=== PATIENT | female | born 1985 | race Caucasian/White ===

== ENCOUNTER 2018-02-22 06:09 | Day surgery (SDC) | payer OTHER ==
--- NOTE | 2018-02-21 21:38 | PDGENHP ---
History and Physical - Chief Complaint Right Hip Pain - History of Present Illness 1. Bilateral~Femoroacetabular impingement (SHAYY) mixed type, (Right side symptomatic) 2. Bilateral~Early Osteoarthritis 3. 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 I have enjoyed meeting her. She~lives in [place], [place]. 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 ~ She~is ; she~has no~children. ~Giovannaenjoys training dogs ([employer]) , horseback riding ([employer]). Bertha's right~hip pain started summer, with no~recalled trauma or injury , and with no~previous complaints. Giovannadoes not have~a known history of hip dysplasia. Noticed at work with sharp stabbing pain when going from sitting to standing. Used to occur 1 x week, now daily. Improves with walking, but has noticed she's changed how she ambulates now too. Riding horses has also become bothersome. Presentation today is of anterior right~hip pain. ~The hip does not~wake her~at night and does not~click and catch on her. Sitting does not present a problem~ for her. Giovannadoes~report suffering from lower back pain episodes. Giovannahas~participated in physical therapy and has not~tried other conservative measures including. She~has not~received sufficient symptomatic improvement. Giovannahas~utilized medication for pain management, including NSAID. Giovannahas used medication for several months. Giovannadenies issues with the left~hip. ~ Giovannaunderstands that she~has a hip and pelvis problem which should be researched and wishes to get a better understanding of her~hip status, followed by an establishment of a treatment strategy, hoping she~would be able to get back to her~well being active life. History: Past medical history: ~ Patient ~has a past medical history of Diabetes mellitus (HC code); Diabetes mellitus type II; Hyperlipidemia; Ingrown toenail; Kidney abscess; and Vertebral fracture. She also has no past medical history of Complication of anesthesia; Dysrhythmia; Malignant hyperthermia; or Motion sickness. Relevant familial history: None which is relevant Past surgical history: None Giovannahas never received general anesthesia. I have reviewed, verified and agree with the past medical, surgical, family and social history. Current Medications:~has a current medication list which includes the following prescription(s): blood sugar diagnostic strip, empagliflozin, ergocalciferol ( vitamin d2), glucagon, insulin degludec, insulin lispro, lancets, liraglutide, metformin, naproxen sodium, and sandeep pen needle. ALLERGIES:~has No Known Allergies. Objective: Physical Examination: Giovannais 5~feet 2~inches tall and weighs 182~Lbs. Giovannais AAO x3; she~is well- nourished, in NAD. Skin is warm and dry. ~Breathing is non-labored. ~CV with RRR by pulse. Abdomen is soft, NTND. Currently, she~walks with a abnormal - externally rotated on R - ~gait. Trendelenburg sign is negative~and proprioception is reduced, both~sides. She~presents with mild~signs of joint laxity. Beightons Score: 2 ~ Lower spine examination is negative~for sciatic or femoral nerve irritation with negative~SLR &~femoral stretch tests. Range of motion of the spine is normal~for flexion, extension, and rotations, with no~associated pain. Strength, Sensation and pulses are normal - bilaterally Ankles and knees exams are normal~and no~mal-alignment is evident. She~has no leg length discrepancy. Thigh circumference is symmetric~with no evidence for muscle atrophy~on both~ sides. Hip ROM (degrees): FL ER At 90~hip FL IR At 90~hip FL AB AD EX IR Neutral hip ER Neutral hip R 100 45 10 45 5 5 15 45 L 110 50 15 50 5 5 20 40 Specific hip and pelvis tests: Impingement Test ALEXANDRO Roll Add. Longus R +++ +++ +++ + L Negative Negative Negative + Glut. Med ITB Posterior Imp R Negative 5/5 strength Negative 5/5 strength Negative L Negative 5/5 strength Negative 5/5 strength Negative Squeeze test measured normal Bony Symphysis pubis is pain free~to touch while concentric activity of the rectus abdominis, does not~produce pain at its insertion. Ilio Psos specific tests are negative for pain during cycling for both hips~and remarkable for nothing further HF has no pain both hips. Anterior~capsule tenderness on the right Greater trochanteric burse is pain free~on both hips. Piriformis tests: FAIR is negative, with no~local signs of neuritis related to sciatic nerve. SIJs examination is normal~with normal~ALEXANDRO in relation and local tenderness. Hamstrings tests are no pain both hips. On a daily basis, the following percentages reflect Bertha's overall total pain: Deep hip: 100% Imaging: Radiology studies which I have personally reviewed, analyzed and measured are below: XR: AP of the hip and pelvis: Performed in a good~technique Coccyx to pubic symphysis distance 2.9~cm. 0~degrees caudal [place] Lines are preserved. Minimal~Pathological signs are seen in the Symphysis Pubis. No~Pathological signs are seen at the Ischial tuberosity. ~ Specific measurements show: NSA~ LCE Sourcil~Angle Sharp's angle Lat. Cam Lat. Pincer C.Over~sign Head~Coverage % ATDmm R 130 43 2 36 N N N 92.3 + L 124 38 2 39 N N N 87.8 + Pos. wall sign ISS NAD ~~Dysplasia Comments R Negative Negative 12.6~mm Negative L Negative Negative 10.2~mm Negative Sclerosis Sup. Lat. OA Cysts Joint Space-WBZ Joint Space-Medial R + Negative Negative 4.6~mm 2.0~mm L + Negative Negative 4.3~mm 2.2~mm X Table lateral: Anterior cam lesion is seen~on both hips. Alpha Angle: ~ Right 60~dergrees Left 57~degrees Impression and plan: Giovannais a 32 y.o.~active female~suffering from symptomatic Right~hip pain due to Right~Femoroacetabular impingement (SHAYY) Cam type, Right clinical femoral retrotorsion and Right early hip arthritis~causing significant disability to her ~and altering her~sport and life activities. Physical examination, imaging, and her~story correspond with the diagnosis mentioned above. I explained that femoral malrotation is a condition wherein the hip joint has excessive play~and instability due to the orientation of the femur bone or where the femur bone is rotated towards the back of the hip socket resulting in additional impingement pathology. This pathology ranges in severity with treatment options being specific to the nature of the problem. Left untreated, the ante-torsion related instability or the retro-torsion related impingement in the hip joint can cause progressive tearing of the labrum and deterioration of the surface cartilage, ultimately resulting in progressive osteoarthritis of the hip. ~ I explained that femoroacetabular impingement (SHAYY - Cam type) arises due to a bony or soft tissue conflict between the femur (ball) and acetabulum (socket) caused by an abnormality in the shape of the femoral head and neck. Over time, repetitive impingement can result in damage to the labrum and adjacent surface cartilage within the socket, ultimately giving rise to progressive osteoarthritis of the hip. ~ I explained that although a labral tear can be a source of pain, it is rarely the root of the problem and typically occurs secondary to an underlying abnormality in the shape and mechanics of the hip joint. ~ I reviewed conservative treatment options for Femoral malrotation and SHAYY including activity modification to avoid positions of impingement or instability , physical therapy, non-steroidal anti-inflammatory medications, and various injections (corticosteroid and PRP) aimed at reducing inflammation in the hip joint or/and preventing dynamic instability and impingement. PRP injections may promote healing and reduce symptoms in certain cases but it will not repair chronically damaged tissue. Although these measures may help to buy time~and reduce current level of symptoms, they are not a definitive solution to the problem given the underlying abnormality in the shape of the hip joint. ~ Patients who have failed conservative management and continue to experience symptoms are candidates for definitive surgical treatment, which may consist of hip arthroscopy alone or in combination with more invasive bony realignment procedures of the femur called derotational femoral osteotomy (DFO), where the femur bone is rotated to the normal anatomical range. ~ Hip arthroscopy typically includes treating the labrum with either repair or reconstruction of the torn labrum; as well as addressing the underlying abnormalities by restoring the normal shape to the hip joint. If the cartilage is damaged a Microfracture surgical procedure may also be necessary to help stimulate the growth of fibrocartilage. If a patient requires a labral reconstruction or a microfracture, the initial rehabilitation from the surgery may take longer, but the half-way results are typically favorable. We discussed that given the early/advanced arthritic findings on XR we need to get further imaging to determine the best treatment strategy moving forward. Bertha~will review the info presented. In order to obtain more detailed information regarding the alignment, orientation, and shape of the bony hip and pelvis I will order a CT scan to be performed. The results of the CT scan, including femoral torsion and acetabular version measured values and 3D images, will aid me in deciding on the best treatment strategy and surgical pre-planning. In order to better evaluate the soft tissues and cartilage of the hip joint, I will order an MRI scan. She will follow-up with us in clinic after the above imaging has been obtained and discuss treatment options moving forward. Giovannais happy with this plan. I have also supplied her~with handouts, outlining the expected surgical treatment and rehab involved. I wish~Giovannaall the best, ~~ Alivia Herrera MD History Information - Allergies/Home Medication List Allergies/Adverse Reactions: No Known Allergies Allergy (Verified 02/06/18 16:47) Home Medications: Jardiance 02/06/18 [Last Taken Unknown] Metformin HCl ER 02/06/18 [Last Taken Unknown] Multivitamins 02/06/18 [Last Taken Unknown] Tresiba Flextouch U-100 02/06/18 [Last Taken Unknown] Victoza 3-Richard 02/06/18 [Last Taken Unknown] I have personally reviewed and updated: medical history - Social History Smoking Status: Never smoked Review of Systems Review of Systems: Physical Exam Physical Exam:
[2018-02-22] MEDS ORDERED: PREGABALIN 150 MG CAP PO ONE (06:20)
[2018-02-22] MEDS ORDERED: ceFAZolin 2 GM/DEXTROSE 100 ML IV ONE (06:20)
[2018-02-22] MEDS ORDERED: ACETAMINOPHEN 500 MG TAB PO ONE (06:20)
[2018-02-22] MEDS ORDERED: LIDOCAINE 1% 2 ML INJ ID PRN (06:22)
[2018-02-22] MEDS ORDERED: LR 1,000 ML IV ONE (06:22)
[2018-02-22 07:31] LABS: CREATINE KINASE 48 IU/L (0-156)
[2018-02-22] MEDS ORDERED: BUPIVACAINE 0.25% 30 ML SDV ONE (07:58)
[2018-02-22] MEDS ORDERED: EPINEPHrine 30 MG/30 ML MDV (0.1 MG/0.1 ML) ONE (07:59)
[2018-02-22] MEDS ORDERED: MIDAZOLAM 2 MG/2 ML VIAL ONE (08:32)
[2018-02-22] MEDS ORDERED: MIDAZOLAM 2 MG/2 ML VIAL IVP ONE (08:36)
--- NOTE | 2018-02-22 08:36 | PDANEPAE ---
ANE Past Medical History - Cardiovascular History Hx Hypertension: No Hx Arrhythmias: No Hx Chest Pain: No Hx Coronary Artery / Peripheral Vascular Disease: No Hx CHF / Valvular Disease: No Hx Palpitations: No - Pulmonary History Hx COPD: No Hx Asthma/Reactive Airway Disease: No Hx Recent Upper Respiratory Infection: No Hx Oxygen in Use at Home: No Hx Sleep Apnea: No Sleep Apnea Screening Result - Last Documented: Negative - Neurologic History Hx Cerebrovascular Accident: No Hx Seizures: No Hx Dementia: No - Endocrine History Hx Diabetes: Yes Hypothyroid: No Hyperthyroid: No Obesity: yes, mild Endocrine History Comment: type II DM - Renal History Hx Renal Disorders: No - Liver History Hx Hepatic Disorders: No - Neurological & Psychiatric Hx Hx Neurological and Psychiatric Disorders: No - Cancer History Hx Cancer: No - Congenital Disorder History Hx Congenital Disorders: No - GI History GERD: no Hx Gastrointestinal Disorders: No - Other Health History Other Health History: none - Chronic Pain History Chronic Pain: Yes (fx lower back) - Surgical History Prior Surgeries: foot sx and biopsy 2016 ANE Review of Systems Review of Systems: - Exercise capacity METS (RN): 4 METS ANE Patient History - Allergies Allergies/Adverse Reactions: No Known Allergies Allergy (Verified 02/06/18 16:47) - Home Medications Home Medications: Jardiance 02/06/18 [Last Taken 02/21/18] Metformin HCl ER 02/06/18 [Last Taken 02/21/18] Multivitamins 02/06/18 [Last Taken 02/21/18] Tresiba Flextouch U-100 02/06/18 [Last Taken 02/21/18] Victoza 3-Richard 02/06/18 [Last Taken 02/21/18] - NPO status NPO Since - Liquids (Date): 02/21/18 NPO Since - Liquids (Time): 21:00 NPO Since - Solids (Date): 02/21/18 NPO Since - Solids (Time): 19:00 - Anes Hx Anes Hx: post operative nausea and vomiting - Smoking Hx Smoking Status: Never smoked - Alcohol Use Alcohol Use: Rarely - Family Anes Hx Family Anes Hx: neg - N/A Family Hx Anesthesia Complications: none ANE Labs/Vital Signs - Vital Signs Height: 157.48 cm Weight: 80.739 kg ANE Physical Exam - Airway Neck exam: FROM Mallampati Score: Class 3 Mouth exam: normal dental/mouth exam - Pulmonary Pulmonary: no respiratory distress, no rales or rhonchi, clear to auscultation - Cardiovascular Cardiovascular: regular rate and rhythym, no murmur, rub, or gallop - ASA Status ASA Status: II ANE Anesthesia Plan Anesthesia Plan: general endotracheal anesthesia Total IV Anesthesia: No
[2018-02-22] MEDS ORDERED: REMIFENTANIL HCL 1 MG VIAL ONE ×2 (08:42→11:05)
[2018-02-22] MEDS ORDERED: fentaNYL 100 MCG/2 ML INJ ONE ×3 (08:42→13:12)
[2018-02-22] MEDS ORDERED: PROPOFOL 200 MG/20 ML VIAL ONE (08:42)
[2018-02-22] MEDS ORDERED: PROPOFOL/EMULSION 500 MG/50 ML BOTTLE IV ONE ×2 (08:42→11:05)
[2018-02-22] MEDS ORDERED: ONDANSETRON 4 MG/2 ML VIAL ONE (08:45)
[2018-02-22] MEDS ORDERED: ROCURONIUM 50 MG/5 ML VIAL ONE (08:46)
[2018-02-22] MEDS ORDERED: SUCCINYLCHOLINE CHLORIDE 200 MG/10 ML SYR IVP ONE (08:46)
[2018-02-22] MEDS ORDERED: DEXAMETHASONE 4 MG/ML VIAL ONE (08:46)
[2018-02-22] MEDS ORDERED: LIDOCAINE 2% 5 ML SDV ONE (08:47)
[2018-02-22] MEDS ORDERED: PHENYLEPHRINE HCL 100 MCG/ML SYR ONE ×2 (08:53→12:29)
[2018-02-22] MEDS ORDERED: HYDROCODONE/APAP 5/325 TAB PO PRN (10:07)
[2018-02-22] MEDS ORDERED: oxyCODONE IR 5 MG TAB PO PRN (10:07)
[2018-02-22] MEDS ORDERED: ACETAMINOPHEN 500 MG TAB PO PRN (10:07)
[2018-02-22] MEDS ORDERED: LR 500 ML IV PRN (10:07)
[2018-02-22] MEDS ORDERED: NALOXONE HCL 0.4 MG/ML INJ IVP PRN (10:07)
[2018-02-22] MEDS ORDERED: ONDANSETRON 4 MG/2 ML VIAL IVP PRN (10:07)
[2018-02-22] MEDS ORDERED: PHENYLEPHRINE HCL 100 MCG/ML SYR IVP PRN (10:07)
[2018-02-22] MEDS ORDERED: PROMETHAZINE HCL 25 MG/ML INJ IVP PRN (10:07)
[2018-02-22] MEDS ORDERED: KETOROLAC 30 MG/1 ML SDV ONE (12:25)
[2018-02-22] MEDS: fentaNYL 100 MCG/2 ML INJ IVP PRN ×4 (12:50→13:34)
[2018-02-22] MEDS ORDERED: HYDROmorphONE/DILAUDID 1 MG/ML INJ ONE (12:55)
[2018-02-22] MEDS: HYDROmorphONE/DILAUDID 1 MG/ML INJ IVP PRN ×2 (12:59→13:43)
[2018-02-22] MEDS ORDERED: oxyCODONE IR 5 MG TAB ONE (13:47)
--- NOTE | 2018-02-22 13:59 | POSTANESTH ---
Post Anesthetic Evaluation Cardiovascular Status: Normal, Stable Respiratory Status: Normal, Stable Level of Consciousness/Mental Status: Can Participate in Eval Pain Control: Adequate, Prn Tx Ordered Nausea/Vomiting Control: Adequate, Prn Tx Ordered Complications Possibly Related to Anesthesia: None Noted
[2018-02-22 15:21] VITALS: BP 126/71
== END 2018-02-22 15:21 | disposition home or self-care (01) ==
LOC: FSGY 06:09
PROVIDERS: ATTEND Orthopaedic Surgery Sports Medicine
PROC: 0SQ94ZZ Repair Right Hip Joint, Percutaneous Endoscopic Approach (ICD-10-PCS; principal; 2018-02-22 08:30)
PROC: 0SB94ZZ Excision of Right Hip Joint, Percutaneous Endoscopic Approach (ICD-10-PCS; principal; 2018-02-22 08:30)
PROC: BQ101ZZ Fluoroscopy of Right Hip using Low Osmolar Contrast (ICD-10-PCS; principal; 2018-02-22 08:30)
DX: M25.851 Other specified joint disorders, right hip (principal); M16.0 Bilateral primary osteoarthritis of hip; M65.88 Other synovitis and tenosynovitis, other site; E11.9 Type 2 diabetes mellitus without complications; E78.5 Hyperlipidemia, unspecified
CPT/HCPCS: C1713; J0171; J0330; J0690; J1100; J1170; J1885; J2250; J2370; J2405; J2704; J3010